=== PATIENT | female | born 1995 | race Two or more races ===

== ENCOUNTER 2023-03-04 20:54 | Emergency (ER) | payer OTHER ==
[2023-03-04 21:09] VITALS: BMI 26.6
[2023-03-04] MEDS ORDERED: ACETAMINOPHEN 1000 MG/100 ML BAG IVPB ONE (22:47)
[2023-03-04] MEDS ORDERED: SODIUM CHLORIDE 0.9% 500 ML INFUS.BAG IV ONE (22:47)
[2023-03-04] MEDS ORDERED: METOCLOPRAMIDE HCL INJECTION 10 MG/2 ML VIAL IVPUSH ONE (22:47)
[2023-03-04] MEDS ORDERED: METOCLOPRAMIDE HCL INJECTION 10 MG/2 ML VIAL ONE (23:04)
[2023-03-04] MEDS ORDERED: ACETAMINOPHEN INJECTION 100 ML IVPB ONE (23:04)
[2023-03-05 01:22] VITALS: BP 125/71; PULSE 84; RESP 16; TEMP 97.6
== END 2023-03-05 01:21 | disposition home or self-care (01) ==
LOC: JER 20:54
PROC: 3E033NZ Introduction of Analgesics, Hypnotics, Sedatives into Peripheral Vein, Percutaneous Approach (ICD-10-PCS; principal; 2023-03-04)
PROC: 3E033GC Introduction of Other Therapeutic Substance into Peripheral Vein, Percutaneous Approach (ICD-10-PCS; 2023-03-04)
DX: S06.0X0A Concussion without loss of consciousness, initial encounter (principal); R51.9 Headache, unspecified; H53.71 Glare sensitivity; F40.298 Other specified phobia; W10.8XXA Fall (on) (from) other stairs and steps, initial encounter; W22.8XXA Striking against or struck by other objects, initial encounter
CPT/HCPCS: 36415; 70450-TC; 72125-TC; 84703; 99284-25